=== PATIENT | female | born 2000 | race Caucasian/White ===

== ENCOUNTER 2021-04-02 00:27 | Emergency (ER) | payer OTHER ==
[2021-04-02 02:01] LABS: HEMOGLOBIN 13.8 gm/dl (12.3-15.3); RED BLOOD COUNT 4.2 M/UL (4.00-5.10); WHITE BLOOD COUNT 15.2 K/UL (4.5-11.0)
[2021-04-02 02:22] LABS: BUN/CREATININE RATIO 14 (0-10)
[2021-04-02] MEDS ORDERED: CEPHALEXIN500 M1 PO (03:43)
== END 2021-04-02 03:55 | disposition home or self-care (01) ==
LOC: ER1 00:27
PROVIDERS: Family Medicine
DX: N39.0 Urinary tract infection, site not specified (principal); Z20.822 Contact with and (suspected) exposure to COVID-19
CPT/HCPCS: 0240U; 80053; 81001; 84703; 85025; 87086; 99283